=== PATIENT | female | born 1975 | race Caucasian/White ===

== ENCOUNTER 2018-08-21 10:57 | Emergency (ER) | payer MEDICAID ==
[~2018-08-21] VITALS: Ht 165.1 cm; Wt 90.9 kg
[2018-08-21] MEDS ORDERED: IBUP-1984 PO (13:11)
[2018-08-21 13:36] VITALS: BP 125/78
== END 2018-08-21 13:32 | disposition home or self-care (01) ==
LOC: ER 10:58
DX: S93.492A Sprain of other ligament of left ankle, initial encounter (principal); Z79.899 Other long term (current) drug therapy; W01.198A Fall on same level from slipping, tripping and stumbling with subsequent striking against other object, initial encounter; Y93.89 Activity, other specified; Y92.89 Other specified places as the place of occurrence of the external cause; Y99.8 Other external cause status
CPT/HCPCS: 29515; 73610; 99283

== ENCOUNTER 2020-09-20 11:45 | Emergency (ER) | payer OTHER, MEDICAID ==
[~2020-09-20] VITALS: Ht 167.6 cm; Wt 77.5 kg
[2020-09-20 11:49] VITALS: BP 123/81
[2020-09-20] MEDS ORDERED: ibuprofen tablet 400 MG TABLET PO ONE (12:35)
== END 2020-09-20 13:04 | disposition home or self-care (01) ==
LOC: ER 11:45
DX: S13.4XXA Sprain of ligaments of cervical spine, initial encounter (principal); M54.2 Cervicalgia; V87.7XXA Person injured in collision between other specified motor vehicles (traffic), initial encounter; Y93.89 Activity, other specified; Y92.89 Other specified places as the place of occurrence of the external cause; Y99.8 Other external cause status
CPT/HCPCS: 99282; 99283

== ENCOUNTER 2024-07-06 16:20 | Emergency (ER) | payer MEDICAID ==
[~2024-07-06] VITALS: Ht 165.1 cm; Wt 115.5 kg
[2024-07-06 16:34] VITALS: BP 120/75; PULSE 71; O2SAT 99
[2024-07-06 17:58] VITALS: RESP 16
[2024-07-06] MEDS: ketorolac trometh 15mg/ml vial 15 MG/ML ML IM ONE (17:58)
[2024-07-06 18:03] VITALS: TEMP 98.3
== END 2024-07-06 18:05 | disposition home or self-care (01) ==
LOC: ER 16:21
DX: S42.291A Other displaced fracture of upper end of right humerus, initial encounter for closed fracture (principal); X58.XXXA Exposure to other specified factors, initial encounter; Y93.89 Activity, other specified; Y92.89 Other specified places as the place of occurrence of the external cause; Y99.8 Other external cause status
CPT/HCPCS: 73030; 96372; 99283; J1885

== ENCOUNTER 2024-08-13 13:15 | Emergency (ER) | payer MEDICAID ==
[~2024-08-13] VITALS: Ht 165.1 cm; Wt 113.6 kg
[2024-08-13 13:20] VITALS: BP 137/83; PULSE 87; RESP 17; TEMP 98.1; O2SAT 95
[2024-08-13] MEDS ORDERED: CHLO25CA10 PO (14:11)
--- NOTE | 2024-08-13 14:12 | Physician Documentation ---
History of Present Illness ~ Chief Complaint: Detox Clearance Stated Complaint: MED CLEARANCE FOR EMPIRE Time Seen by MD: 13:48 HPI Patient is seen today with complaints of alcoholism. Patient states she has been off alcohol for a little while and just recently relapsed a few days ago in his drank about a gal of hard liquor over the last few days. Patient denies any current chest pain or shortness of breath or abdominal pain or nausea, vomiting, diarrhea. Patient has no other concern or complaint at this time. Tetanus within 5 years?: Yes Medication Reconciliation Allergies: Coded Allergies: No Known Allergies (Unverified , 07/06/24) Past Medical History Past Medical History: No Pertinent History Past Surgical History: noncontributory Alcohol Use: None Drug Use: none Lives In: Home Review of Systems Constitutional: Denies: chills, fever, weakness Eyes: Denies: pain, blurred vision ENT: Denies: ear pain, nose pain, throat pain, mouth pain Respiratory: Denies: cough, shortness of breath Cardiovascular: Denies: chest pain, palpitations Gastrointestinal: Denies: abdominal pain, nausea, vomiting Genitourinary: Denies: burning, dysuria Female Genitalia: Denies: vaginal discharge, pelvic pain Neurological: Denies: headache, dizziness Musculoskeletal: Denies: pain, swelling Integumentary: Denies: rash, lesions Allergic/Immunologic: Denies: hives, itching Hematologic/Lymphatic: Denies: no symptoms reported Psychiatric: Denies: depression, anxiety Physical Exam Vital Signs: Temperature: 98.1, Heart Rate: 87, Respiratory Rate: 17, BP: 137/83, Pulse Oximetry: 95, Weight: 113.640 Oxygen Flow Rate: 0 Physical Exam General: Awake and Alert, no acute distress. HEENT: Conjunctiva pink, Sclera clear, Mucus Membranes moist. Neck: Supple without masses and tenderness. Resp: Unlabored. Lungs clear to auscultation bilaterally. Heart: Regular Rate and rhythm, normal S1 and S2 without murmur, rub or gallop. Abdomen: Soft and non tender no organomegaly Extremities: No cyanosis,clubbing or edema. Skin: Warm and Dry. Progress Results/Orders Results/Orders Vital Signs 08/13/24 13:20 Temp 98.1 Pulse 87 Resp 17 B/P (MAP) 137/83 Pulse Ox 95 O2 Flow Rate 0 Medical Decision Making Findings Patient is seen today with complaints of alcoholism. Patient states she has been off alcohol for a little while and just recently relapsed a few days ago in his drank about a gal of hard liquor over the last few days. Patient denies any current chest pain or shortness of breath or abdominal pain or nausea, vomiting, diarrhea. Patient has no other concern or complaint at this time. Patient is medically cleared for [facility]. Patient given prescription of Librium taper just in case sent to patient pharmacy [facility] on [address]. Patient will return to ED with any worsening, concerning or changing symptoms. Shared decision-making utilized with the patient today. Departure Disposition: HOME / SELF CARE / HOMELESS Impression: Primary Impression: Alcohol abuse Condition: Stable Discharge Instructions: Alcohol Intoxication Additional Instructions: Patient is medically cleared for [facility]. Patient given prescription of Librium taper just in case sent to patient pharmacy [facility] on [address]. Patient will return to ED with any worsening, concerning or changing symptoms. Shared decision-making utilized with the patient today. Referrals: NO PRIMARY CARE PROVIDER (PCP) Prescriptions Chlordiazepoxide Hcl (Librium) 25 Mg Capsule 2 CAP PO Q2H PRN PRN for anxiety for 1 Day, #24 CAP 0 Refills Prov: LISA RANDHAWA 08/13/24 Signature Scribe Signature: No scribe Attestation: No scribe LISA RANDHAWA August 13, 2024 14:12
== END 2024-08-13 14:31 | disposition home or self-care (01) ==
LOC: ER 13:15
DX: F10.10 Alcohol abuse, uncomplicated (principal)
CPT/HCPCS: 99283